=== PATIENT | female | born 1995 | race Caucasian/White ===

== ENCOUNTER 2017-06-18 08:49 | Day surgery (SDC) | payer OTHER ==
[~2017-06-18 08:49] MED LIST: Lactated Ringers 1,000 ML IV SCH
[2017-06-18] MEDS ORDERED: Midazolam 1 MG/ML 2 ML SDV IV ONE (10:12)
[2017-06-18] MEDS ORDERED: Propofol 200 MG/20 ML SDV IV ONE (10:12)
--- NOTE | 2017-06-18 10:30 | PCM.HPR ---
H & P Addendum review - H & P Addendum Review Date of Original H & P: 06/17/17 Date Reviewed: 06/18/17 Time Reviewed: 10:00 Patient was Examined: No Changes
--- NOTE | 2017-06-18 10:32 | PCM.OPNOTE ---
- General Post-Op/Procedure Note Date of Surgery/Procedure: 06/18/17 Operative Procedure(s): EGD with Bx Findings: Gastritis Pre Op Diagnosis: UGI Bleed Post-Op Diagnosis: Same Anesthesia Technique: MAC Primary Surgeon: Rodger Salvador Complications: None Condition: Good
--- NOTE | 2017-06-18 18:29 | OR ---
DATE OF OPERATION: 06/18/2017 SURGEON: Rodger Salvador MD PREOPERATIVE DIAGNOSIS: Upper GI bleed. POSTOPERATIVE DIAGNOSIS: Gastritis. PROCEDURE: EGD with biopsy. ANESTHESIA: IV sedation. PROCEDURE IN DETAIL: The patient was brought to the procedure room, where she was placed on her left side and IV sedation administered. Oral bite block was placed and the upper endoscope advanced into the esophagus under direct vision without difficulty. Vocal cords were viewed and were normal. The scope was advanced to the third portion of the duodenum. The duodenum and pylorus were normal. Antrum was normal. The major portion of the body was normal except the upper portion near the greater curvature where there was a large area of mild gastritis measuring several centimeters in diameter. This was fairly well defined. I took two biopsies from this area and photographs were taken. This was the likely source of her bleeding, although there was no bleeding present today. Otherwise, retroflexion was normal. Squamocolumnar junction was normal. I also took two biopsies from the antrum to check for H pylori. Air was removed from the stomach and the scope withdrawn through the remaining esophagus which was normal. The patient tolerated the procedure well and returned to recovery room in stable condition. I will have the patient remain on her omeprazole and follow up with her at the end of the week for review of biopsies. /[id number] ROBERT/KELLY
== END 2017-06-18 11:31 | disposition home or self-care (01) ==
LOC: FB.SDS 08:49
PROVIDERS: ATTEND Surgery
DX: K29.50 Unspecified chronic gastritis without bleeding (principal); Z88.0 Allergy status to penicillin; Z90.49 Acquired absence of other specified parts of digestive tract
CPT/HCPCS: 81025; 88305; J2250; J2704; J7120

== ENCOUNTER 2023-05-17 08:16 | Emergency (ER) | payer BC ==
[2023-05-17] MEDS ORDERED: Sodium Chloride 0.9% 10 ML Syringe FLUSH PRN (08:27)
[2023-05-17 08:49] LABS: BASOPHILS ABSOLUTE AUTO 0.1 x10-3/uL (0.0-0.1); BASOPHILS PERCENT AUTO 0.5 % (0.2-1.5); BLOOD UREA NITROGEN,BUN 9 mg/dL (7-18); CALCIUM 8.9 mg/dL (8.6-10.2); CARBON DIOXIDE,CO2 23 mmol/L (21-32); CHLORIDE,CL 103 mmol/L (100-110); CREATININE 0.9 mg/dL (0.55-1.02); EOSINOPHILS ABSOLUTE AUTO 0.1 x10-3/uL (0.0-0.8); EOSINOPHILS PERCENT AUTO 0.9 % (0.6-8.1); EST CRCL DRUG DOSING (CG) 72.95 mL/min; ESTIMATED GFR 89 mL/min (>60); GLUCOSE RANDOM 88 mg/dL (80-116); HEMATOCRIT 39.9 % (34.2-48.2); HEMOGLOBIN 13.3 g/dL (11.4-15.5); LYMPHOCYTES ABSOLUTE AUTO 2.4 x10-3/uL (1.0-4.4); LYMPHOCYTES PERCENT AUTO 23.7 % (18.4-52.1); MEAN CORPUSCULAR HEMOGLOBIN 31.7 pg (23.9-33.9); MEAN CORPUSCULAR HGB CONC 33.4 g/dL (31.9-34.8); MEAN CORPUSCULAR VOLUME 94.7 fL (76.7-100.5); MEAN PLATELET VOLUME 6.9 fL (7.1-12.4); MONOCYTES ABSOLUTE AUTO 0.6 x10-3/uL (0.3-1.0); MONOCYTES PERCENT AUTO 6.2 % (4.4-15.7); NEUTROPHILS PERCENT AUTO 68.7 % (30.8-76.2); PLATELET COUNT,PLT 316 x10(3)uL (151-488); POTASSIUM,K 3.7 mmol/L (3.5-5.3); RED BLOOD CELL COUNT 4.21 x10(6)uL (3.60-5.20); RED CELL DISTRIBUTION WIDTH 13.6 % (12.3-16.5); SODIUM,NA 136 mmol/L (135-145); WHITE BLOOD CELL COUNT,WBC 10.2 x10-3/uL (3.0-10.3)
[2023-05-17 08:55] LABS: A/G RATIO 0.8; ALANINE AMINOTRANSFERASE,ALT 17 U/L (12-36); ALBUMIN 3.2 g/dL (3.5-5.2); ALKALINE PHOSPHATASE 68 IU/L (56-112); ASPARTATE AMNIOTRANSFERASE,AST 10 IU/L (5-25); BILIRUBIN TOTAL 0.3 mg/dL (0.1-1.3); PROTEIN TOTAL,TP 7.3 g/dL (6.0-8.0)
[2023-05-17] MEDS: Ketorolac 30 MG/ML SDV IVPUSH ONE (09:06)
[2023-05-17 09:09] LABS: INR 0.92 (1.00-1.24); PROTHROMBIN TIME 9.7 sec (9.0-11.1); PTT,PARTIAL THROMBOPLSTIN TIME 25.6 SECONDS (24.4-33.2)
== END 2023-05-17 10:02 | disposition home or self-care (01) ==
LOC: FB.ED 08:16
DX: G43.909 Migraine, unspecified, not intractable, without status migrainosus (principal); F17.210 Nicotine dependence, cigarettes, uncomplicated; Z88.0 Allergy status to penicillin; Z79.899 Other long term (current) drug therapy; Z90.49 Acquired absence of other specified parts of digestive tract
CPT/HCPCS: 36415; 70450; 71045; 80053; 84484; 85025; 85379; 85610; 85730; 93005; 93010; 96374; 99283; 99284-25; J1885